=== PATIENT | female | born 1955 | race Hispanic/Latino ===

== ENCOUNTER 2016-12-18 08:55 | Emergency (ER) | payer OTHER ==
[2016-12-18 08:59] VITALS: RESP 19
--- NOTE | 2016-12-18 09:31 | ED PDOC ---
HPI: General Adult Time Seen by Provider: 12/18/16 09:13 Chief Complaint (Nursing): Abdominal Pain History Per: Patient History/Exam Limitations: no limitations Onset/Duration Of Symptoms: Days Current Symptoms Are (Timing): Still Present Severity: Moderate Additional Complaint(s): 61-year-old female, presents to the emergency department with multiple, non- specific complaints. Patient states she has been experiencing ten-day duration of a generalized headache, chest pain and generalized abdominal pain. Patient notes that she was seen in her primary doctors office six days ago, where she was told to "change diet due to elevated cholesterol" Patient denies nausea/ vomiting, diarrhea, fevers, chills, numbness/weakness, vision/speech changes, dizziness, change in bowel habits, symptoms, or any other associated symptoms. Of note, patient reports she lost her job last year, and is currently uninsured; Patient is requesting a CT scan "to see lungs". Past Medical History Reviewed: Historical Data, Nursing Documentation, Vital Signs Vital Signs: Last Vital Signs Temp 97.6 F 12/18/16 12:16 Pulse 80 12/18/16 12:16 Resp 19 12/18/16 09:20 BP 128/80 12/18/16 12:16 Pulse Ox 98 12/18/16 12:16 - Family History Family History: States: Unknown Family Hx - Home Medications Home Medications: Ambulatory Orders Medication Instructions Recorded Alprazolam [Xanax] 0.25 mg PO BID #5 tab 03/10/15 - Allergies Allergies/Adverse Reactions: Allergies Allergy/AdvReac Type Severity Reaction Status Date / Time No Known Allergies Allergy Verified 12/18/16 09:19 Review of Systems ROS Statement: Except As Marked, All Systems Reviewed And Found Negative Constitutional: Negative for: Fever ENT: Negative for: Throat Pain Cardiovascular: Positive for: Chest Pain Respiratory: Negative for: Cough, Shortness of Breath Gastrointestinal: Positive for: Abdominal Pain. Negative for: Nausea, Vomiting , Melena, Hematochezia, Hematemesis Genitourinary Female: Negative for: Vaginal Discharge, Vaginal Bleeding Musculoskeletal: Negative for: Neck Pain, Back Pain Skin: Negative for: Rash Neurological: Positive for: Headache. Negative for: Weakness, Numbness, Dizziness Physical Exam - Reviewed Nursing Documentation Reviewed: Yes Vital Signs Reviewed: Yes - Physical Exam Appears: Positive for: Non-toxic, No Acute Distress Head Exam: Positive for: ATRAUMATIC, NORMOCEPHALIC Skin: Positive for: Warm, Dry. Negative for: Rash Eye Exam: Positive for: Normal appearance Neck: Positive for: Painless ROM Cardiovascular/Chest: Positive for: Regular Rate, Rhythm Respiratory: Positive for: Normal Breath Sounds. Negative for: Accessory Muscle Use, Respiratory Distress Gastrointestinal/Abdominal: Positive for: Soft. Negative for: Tenderness, Guarding, Rebound Extremity: Positive for: Normal ROM Neurologic/Psych: Positive for: Alert, Oriented - Laboratory Results Result Diagrams: 12/18/16 17:25 12/18/16 09:29 - ECG ECG Rhythm: Positive for: Sinus Rhythm (64) O2 Sat by Pulse Oximetry: 99 - Progress ED Course And Treament: Accession No. : [id number] Patient Name / ID : BIPIN BLANTON / [id number] Exam Date : 12/18/2016 09:43:11 ( Approved ) Study Comment : Sex / Age : F / 61Y Creator : Denis Oliveira MD Dictator : Denis Oliveira MD Seam Stayer : Digital Media Producer : Denis Oliveira MD Approver2 : Report Date : 12/18/2016 10:28:49 My Comment : PROCEDURE: CT Chest without contrast HISTORY: history of lung nodule, chest pain COMPARISON: None. TECHNIQUE Contiguous axial images were obtained through the chest without intravenous contrast enhancement. Sagittal and coronal reconstructions were performed. Radiation dose (DLP): mGy-cm. FINDINGS: LUNGS: Stable right middle lobe niodules measuring 3 and 4 mm. And stable nodule in the left upper lobe measuring 4 mm. MEDIASTINUM: Unremarkable thoracic aorta. No aneurysm. Normal sized heart. Main pulmonary artery unremarkable. No vascular congestion. No lymphadenopathy. PLEURA: No pleural fluid. No pneumothorax. BONES: No fracture. No destructive lesion. UPPER ABDOMEN: Grossly unremarkable. OTHER FINDINGS: None. IMPRESSION: Stable nodules. Recommend annual followup. Accession No. : [id number] Patient Name / ID : BIPIN BLANTON / [id number] Exam Date : 12/18/2016 09:47:56 ( Approved ) Study Comment : Sex / Age : F / 61Y Creator : Denis Oliveira MD Dictator : Denis Oliveira MD Seam Stayer : Digital Media Producer : Denis Oliveira MD Approver2 : Report Date : 12/18/2016 10:42:34 My Comment : PROCEDURE: CT Abdomen and Pelvis without intravenous contrast HISTORY: abdominal pain COMPARISON: None. TECHNIQUE: Technique. Contrast Dose: Radiation dose: Total exam DLP = mGy-cm. FINDINGS: LOWER THORAX: Unremarkable. LIVER: Unremarkable. No gross lesion or ductal dilatation. GALLBLADDER AND BILE DUCTS: Unremarkable. PANCREAS: Unremarkable. No gross lesion or ductal dilatation. SPLEEN: Unremarkable. ADRENALS: Unremarkable. No mass. KIDNEYS AND URETERS: Unremarkable. No hydronephrosis. No solid mass. VASCULATURE: Unremarkable. No aortic aneurysm. BOWEL: Unremarkable. No obstruction. No gross mural thickening. APPENDIX: Unremarkable. Normal appendix. PERITONEUM: Unremarkable. No free fluid. No free air. LYMPH NODES: Unremarkable. No enlarged lymph nodes. BLADDER: Unremarkable. REPRODUCTIVE: Unremarkable. BONES: Mild L1 compression fracture of indeterminate age. OTHER FINDINGS: None. IMPRESSION: No acute pathology. Medical Decision Making Medical Decision Making: Impression: Generalized body pain. Patients physical exam does not reveal any acute findings. Prior Visits Notes and records from previous visits were reviewed. Patient last seen in ED on 03/10/15 for chest pain. Patient had a CT chest that showed: 1. 4 mm and 3 mm pulmonary nodules in the right middle lobe, of which the 4 mm nodule corresponds to the nodules seen on the chest radiograph. These nodules may represent noncalcified granuloma. A malignant etiology cannot be excluded. Based on the recommendations from the Fleischner Society on followup of incidental pulmonary nodules, for nodules >4-6mm , initial CT followup is recommended at 12 months, if the patient is low risk for a malignant process. If the patient is high risk, initial followup is recommended at 6-12 months, then at 18-24 months, if no change. 4 mm calcified granuloma in the left upper lobe. No consolidation or lymphadenopathy. Patient was discharged w/ Rx for Xanax. Plan: * EKG * CT Abd/Pel * CT Chest * CMP, Trop I * CBC * Reassess and Disposition 1145 Progress: Patients labs are WNL. BUN is mildly elevated, fluids were ordered. Pts imaging does not reveal any acute findings. On re-evaluation, patient appears well and in no acute distress. Abdomen is soft and non-tender. She will be discharged for outpatient f/u with pmd/clinic. All questions answered. Scribe Attestation: Documented by Cassy Vega acting as a scribe for Yulia Garcia MD. Provider Attestation: All medical record entries made by the Scribe were at my direction and personally dictated by me. I have reviewed the chart and agree that the record accurately reflects my personal performance of the history, physical exam, medical decision making, and the department course for this patient. I have also personally directed, reviewed, and agree with the discharge instructions and disposition. Disposition - Clinical Impression Clinical Impression: Abnormal chest x-ray with multiple lung nodules, Chronic pain - Disposition Referrals: [facility] [Outside] [facility] [Outside] [facility] [Outside] Disposition Time: 11:47 Condition: GOOD Additional Instructions: follow up with primary doctor for further management within one week. return to the ED with any worsening or concerning symptoms. Instructions: Chronic Pain (ED)
[2016-12-18 09:56] LABS: BASO % 0.4 % (0.0-2.0); EOS % 0.3 % (0.0-4.0); HEMATOCRIT 41.2 % (34.0-47.0); LYMPH # 0.9 K/uL (1.0-4.3); LYMPH % 15.5 % (20.0-40.0); MEAN CELL VOLUME 93.4 fl (81.0-99.0); MEAN CORPUSCULAR HEMOGLOBIN 31.1 pg (27.0-31.0); MEAN CORPUSCULAR HGB CONC 33.3 g/dL (33.0-37.0); MEAN PLATELET VOLUME 7.8 fl (7.2-11.7); MONO # 0.3 K/uL (0.0-0.8); MONO % 4.7 % (0.0-10.0); NEUT # 4.5 K/uL (1.8-7.0); NEUT % 79.1 % (50.0-75.0); RED CELL DISTRIBUTION WIDTH 12.8 % (11.5-14.5); WHITE BLOOD COUNT 5.7 K/uL (4.8-10.8)
[2016-12-18 09:58] LABS: ALB/GLOB RATIO 1.1 (1.0-2.1); ALKALINE PHOSPHATASE 79 U/L (38-126); ALT/SGPT 33 U/L (9-52); AST/SGOT 49 U/L (14-36); BILIRUBIN,TOTAL 0.7 mg/dl (0.2-1.3); BLOOD UREA NITROGEN 19 mg/dl (7-17); CALCIUM 9.2 mg/dL (8.4-10.2); CARBON DIOXIDE 24 mmol/L (22-30); CHLORIDE 105 mmol/L (98-107); GFR AFRICAN-AMERICAN > 60; GLUCOSE,RANDOM 95 mg/dL (65-105); POTASSIUM 4.7 MMOL/L (3.6-5.0); SODIUM 142 mmol/l (132-148); TOTAL PROTEIN 8.7 G/DL (6.3-8.2)
--- NOTE | 2016-12-18 10:30 | CT ---
PROCEDURE: CT Chest without contrast HISTORY: history of lung nodule, chest pain COMPARISON: None. TECHNIQUE: Contiguous axial images were obtained through the chest without intravenous contrast enhancement. Sagittal and coronal reconstructions were performed. Radiation dose (DLP): mGy-cm. FINDINGS: LUNGS: Stable right middle lobe niodules measuring 3 and 4 mm. And stable nodule in the left upper lobe measuring 4 mm. MEDIASTINUM: Unremarkable thoracic aorta. No aneurysm. Normal sized heart. Main pulmonary artery unremarkable. No vascular congestion. No lymphadenopathy. PLEURA: No pleural fluid. No pneumothorax. BONES: No fracture. No destructive lesion. UPPER ABDOMEN: Grossly unremarkable. OTHER FINDINGS: None. IMPRESSION: Stable nodules. Recommend annual followup.
--- NOTE | 2016-12-18 10:44 | CT ---
PROCEDURE: CT Abdomen and Pelvis without intravenous contrast HISTORY: abdominal pain COMPARISON: None. TECHNIQUE: Technique. Contrast Dose: Radiation dose: Total exam DLP = mGy-cm. FINDINGS: LOWER THORAX: Unremarkable. LIVER: Unremarkable. No gross lesion or ductal dilatation. GALLBLADDER AND BILE DUCTS: Unremarkable. PANCREAS: Unremarkable. No gross lesion or ductal dilatation. SPLEEN: Unremarkable. ADRENALS: Unremarkable. No mass. KIDNEYS AND URETERS: Unremarkable. No hydronephrosis. No solid mass. VASCULATURE: Unremarkable. No aortic aneurysm. BOWEL: Unremarkable. No obstruction. No gross mural thickening. APPENDIX: Unremarkable. Normal appendix. PERITONEUM: Unremarkable. No free fluid. No free air. LYMPH NODES: Unremarkable. No enlarged lymph nodes. BLADDER: Unremarkable. REPRODUCTIVE: Unremarkable. BONES: Mild L1 compression fracture of indeterminate age. OTHER FINDINGS: None. IMPRESSION: No acute pathology.
[2016-12-18] MEDS ORDERED: Sodium Chloride 0.9% 1,000 ML IV STA (11:10)
[2016-12-18 11:54] LABS: RBC URINE < 1 /hpf (0-3); URINE BILIRUBIN NEGATIVE (NEGATIVE); URINE BLOOD NEGATIVE (NEGATIVE); URINE COLOR COLORLESS (YELLOW); URINE GLUCOSE (UA) NEG (Normal); URINE KETONE NEGATIVE (NEGATIVE); URINE LEUKOCYTE ESTERASE NEG Leu/uL (Negative); URINE PROTEIN NEGATIVE (NEGATIVE); URINE UROBILINOGEN 0.2-1.0 mg/dL (0.2-1.0); WBC URINE < 1 /hpf (0-5)
[2016-12-18 12:18] VITALS: BP 128/80; PULSE 80; TEMP 97.6
[2016-12-18 12:35] VITALS: O2SAT 99
--- NOTE | 2016-12-18 17:11 | CARD ---
APPROVED REPORT EKG Measurement Heart [id number] <Conclusion> Normal sinus rhythm Normal ECG
== END 2016-12-18 12:40 | disposition home or self-care (01) ==
LOC: H.ER 08:55
DX: G89.29 Other chronic pain (principal); R91.8 Other nonspecific abnormal finding of lung field; E78.00 Pure hypercholesterolemia, unspecified; R91.1 Solitary pulmonary nodule; R51 Headache; R07.9 Chest pain, unspecified